=== PATIENT | male | born 1980 | race Caucasian/White ===

== ENCOUNTER 2021-02-08 00:07 | Emergency (ER) | payer SELFPAY ==
[2021-02-08] MEDS ORDERED: Sulfameth/Trimethoprim DS 800-160mg TAB ONE (00:38)
== END 2021-02-08 00:41 | disposition home or self-care (01) ==
LOC: BURERS 00:07
DX: S50.01XA Contusion of right elbow, initial encounter (principal); L03.113 Cellulitis of right upper limb; W11.XXXA Fall on and from ladder, initial encounter; I10 Essential (primary) hypertension; Z79.899 Other long term (current) drug therapy

== ENCOUNTER 2021-07-26 15:25 | Outpatient (CLI) | payer OTHER | END 2021-07-26 15:26 | disposition home or self-care (01) | LOC: BURRAD 15:25 | PROVIDERS: ATTEND Nurse Practitioner Family | DX: M79.671 Pain in right foot (principal); M79.89 Other specified soft tissue disorders; Z87.828 Personal history of other (healed) physical injury and trauma ==

== ENCOUNTER 2021-07-30 11:52 | Emergency (ER) | payer SELFPAY ==
[2021-07-30] MEDS ORDERED: Morphine 4 MG/ML VIAL SLOW IVP ONE (11:53)
[2021-07-30] MEDS ORDERED: Lidocaine 1% w/Epinephrine 1:100K 20 ML VIAL ONE (12:23)
[2021-07-30 12:44] LABS: #Basophils 0.1 thou/uL (0.0-0.2); #Eosinphils 0.3 thou/uL (0.0-0.7); #Lymphocytes 1.7 thou/uL (1.20-3.40); #Monocytes 0.7 thou/uL (0.11-0.59); #Neutrophils 6.6 thou/uL (1.40-6.50); %Basophils 0.6 % (0.0-1.0); %Eosinophils 3.5 % (0.0-10.0); %Lymphocytes 17.8 % (21.0-51.0); %Monocytes 7.9 % (0.0-10.0); %Neutrophils 70.1 % (42.0-75.0); Hemoglobin 16.7 g/dL (14.0-18.0); Mean Corpuscular HGB CONC 34.9 g/dL (32.0-36.0); Mean Corpuscular Hemoglobin 32.3 pg (27.0-31.0); Mean Corpuscular Volume 92.6 fL (78.0-98.0); Platelet Count 228 thou/uL (130-400); RBC Distribution Width 12.2 % (11.5-14.5); Red Blood Cell (RBC) Count 5.17 mill/uL (4.70-6.10); White Blood Cell (WBC) Count 9.4 thou/uL (4.8-10.8)
[2021-07-30 12:56] LABS: ALT (SGPT) 45 U/L (8-55); AST (SGOT) 21 U/L (5-34); Alkaline Phosphatase 60 U/L (40-110); Anion Gap 15 mmol/L (10-20); BUN (Urea Nitrogen) 12 mg/dL (8.9-20.6); Bilirubin, Total 1.3 mg/dL (0.2-1.2); Calc. Creatinine Clearance 0 mL/min (70-130); Calcium 8.9 mg/dL (7.8-10.44); Carbon Dioxide 25 mmol/L (22-29); Chloride 105 mmol/L (98-107); Globulin 3.1 g/dL (2.4-3.5); Glucose 214 mg/dL (70-105); Potassium 3.9 mmol/L (3.5-5.1); Protein, Total 7.1 g/dL (6.0-8.3); Sodium 141 mmol/L (136-145)
[2021-07-30] MEDS ORDERED: Bacitracin 1 PK ONE (13:20)
[2021-07-30] MEDS ORDERED: Ondansetron PF 4 MG/2 ML Vial ONE (13:32)
[2021-07-30] MEDS ORDERED: Ketorolac Tromethamine 30 MG/ML VIAL ONE (13:53)
[2021-07-30] MEDS ORDERED: cefTRIAXone\\ROCEPHIN 1 GM VIAL ONE (13:53)
== END 2021-07-30 14:33 | disposition home or self-care (01) ==
LOC: BURERS 11:52
DX: L03.115 Cellulitis of right lower limb (principal); M79.81 Nontraumatic hematoma of soft tissue; I10 Essential (primary) hypertension; Z79.899 Other long term (current) drug therapy
CPT/HCPCS: 10140; 36415; 80053; 83605; 85025; 86140; 96374; 96375; 96376; J0696; J1885; J2270; J2405